=== PATIENT | male | born 1975 | race Caucasian/White ===

== ENCOUNTER 2016-06-12 20:23 | Emergency (ER) | payer SELFPAY ==
[~2016-06-12] VITALS: Ht 180.3 cm; Wt 68.8 kg
[2016-06-12 20:51] VITALS: TEMP 37; Ht 180.3 cm; Wt 68.8 kg
[2016-06-12] MEDS ORDERED: MoRPHine SULFATE 10 MG/ML CARP/VIAL IV STA (21:47)
[2016-06-12] MEDS ORDERED: DEXAMETHASONE SOD INJ 4 MG/ML VIAL IV STA (21:47)
[2016-06-12] MEDS ORDERED: AMPICILLIN/SULBACTAM SOD INJ 3,000 MG in SODIUM CHLORIDE 0.9% 100ML 100 ML IV ONE (22:00)
[2016-06-12 22:35] LABS: BASO % 0.2 %; BASO ABS # 0.03 K/uL (0-0.2); COMPLETE YES; EOS % 0.2 %; IG% 0.3 %; LYMPH % 12.3 %; MEAN CELL VOLUME 96.8 fL (80-100); MEAN CORPUSCULAR HEMOGLOBIN 32.8 pg (25-34); MEAN CORPUSCULAR HGB CONC 33.9 g/dl (32-36); MEAN PLATELET VOLUME 9.3 fL (7.4-10.4); PLATELET COUNT 321 K/uL (130-400); RED BLOOD COUNT 4.75 M/uL (4.7-6.1); WHITE BLOOD COUNT 14.62 K/uL (4.8-10.8)
[2016-06-12 23:01] LABS: BUN/CREATININE RATIO 12.3 (10-20); CREATININE 0.91 mg/dl (0.60-1.40); POTASSIUM 4.4 mmol/L (3.5-5.1)
[2016-06-12 23:03] LABS: CALCIUM 9.6 mg/dl (8.5-10.1)
[2016-06-12] MEDS ORDERED: [UNRECOGNIZED DRUG - OTHER] PO (23:12)
[2016-06-12] MEDS ORDERED: VNTHFA/IN INH (23:12)
[2016-06-13 00:19] VITALS: BP 127/69; PULSE 73; O2SAT 98
[2016-06-13] MEDS ORDERED: HYDR-5688 PO (00:42)
[2016-06-13] MEDS ORDERED: AMOX875T PO (00:42)
[2016-06-13] MEDS ORDERED: METH4PAK PO (00:42)
--- NOTE | 2016-06-13 00:44 | EMERGENCY ROOM VISIT NOTE ---
History First contact with patient: 21:36 Chief Complaint: ILLNESS Stated Complaint: HOT/COLD, LITTLE WEAK, HARD TO SWALLOW History of Present Illness The patient is a 41 year old male who presents to the Emergency Room with complaints of sore throat for the past 3 days. The patient states that he has had soreness in the left side of his throat and left ear for the past 3-4 days. He has had difficulty swallowing and states that he is currently unable to swallow saliva due to pain. He reports he has had body aches and hot and cold flashes. He has not taken his temperature. He rates his discomfort a 10/10. He denies any sick contacts. He has been taking an etxf-tsx-sliewxy decongestant without relief of his symptoms. He denies any shortness of breath , neck pain, headache, cough, abdominal pain, nausea or vomiting. Review of Systems A complete 10 point review of systems was reviewed with the patient with pertinent positives and negatives as per history of present illness. All else were negative. Social History Smoking Status: Current Every Day Smoker Current/Historical Medications Scheduled Amoxicillin & Pot Clavulanate (Augmentin 875-125 mg), 1 TAB PO BID Methylprednisolone (Medrol Dosepak), 0 PO DAILY [[place]], 1 KARLEE PO PRN Scheduled PRN Albuterol Hfa (Ventolin Hfa), 2 PUFFS INH Q6H PRN for SOB/Wheezing Hydrocodone/Acetaminophen 5MG/325MG ([place] 5MG/325MG), 1-2 TABLET PO Q4H PRN for Pain Physical Exam Vital Signs Date Time Temp Pulse Resp B/P Pulse Ox O2 Delivery O2 Flow Rate FiO2 06/13/16 00:19 73 16 127/69 98 Room Air 06/12/16 22:32 92 20 141/79 95 Room Air 06/12/16 20:51 37.0 106 19 126/78 97 Room Air Physical Exam VITALS: Vitals are noted on the nurse's note and reviewed by myself. Vital signs stable. GENERAL: This is a 41-year-old male, in no acute distress, nondiaphoretic, well- developed well-nourished. SKIN: The skin was without rashes. EARS: External auditory canals clear, tympanic membranes pearly brink without erythema or effusion bilaterally. EYES: Pupils equal round and reactive to light and accommodation. Conjunctivae without injection, sclerae without icterus. NOSE: Patent, turbinates without inflammation or discharge. MOUTH: Mucous membranes moist. There is mild fullness of the left tonsillar area without evidence of cullen abscess. There is no significant uvular deviation. The airway is patent. No exudate present. No trismus. NECK: Supple without nuchal rigidity. No lymphadenopathy. HEART: Regular rate and rhythm without murmurs gallops or rubs. LUNGS: Clear to auscultation bilaterally without wheezes, rales or rhonchi. ABDOMEN: Positive bowel sounds x 4. Soft, nontender to palpation. NEURO: Patient was alert and oriented to person place and time. Medical Decision & Procedures Laboratory Results 06/12/16 22:15 Red Blood Count 4.75, Mean Corpuscular Volume 96.8, Mean Corpuscular Hemoglobin 32.8, Mean Corpuscular Hemoglobin Concent 33.9, Mean Platelet Volume 9.3, Neutrophils (%) (Auto) 76.0, Lymphocytes (%) (Auto) 12.3, Monocytes (%) (Auto) 11.0, Eosinophils (%) (Auto) 0.2, Basophils (%) (Auto) 0.2, Neutrophils # (Auto ) 11.11, Lymphocytes # (Auto) 1.80, Monocytes # (Auto) 1.61, Eosinophils # (Auto ) 0.03, Basophils # (Auto) 0.03 06/12/16 22:15 Test 06/12/16 22:15 White Blood Count 14.62 K/uL (4.8-10.8) Red Blood Count 4.75 M/uL (4.7-6.1) Hemoglobin 15.6 g/dL (14.0-18.0) Hematocrit 46.0 % (42-52) Mean Corpuscular Volume 96.8 fL (80-100) Mean Corpuscular Hemoglobin 32.8 pg (25-34) Mean Corpuscular Hemoglobin Concent 33.9 g/dl (32-36) Platelet Count 321 K/uL (130-400) Mean Platelet Volume 9.3 fL (7.4-10.4) Neutrophils (%) (Auto) 76.0 % Lymphocytes (%) (Auto) 12.3 % Monocytes (%) (Auto) 11.0 % Eosinophils (%) (Auto) 0.2 % Basophils (%) (Auto) 0.2 % Neutrophils # (Auto) 11.11 K/uL (1.4-6.5) Lymphocytes # (Auto) 1.80 K/uL (1.2-3.4) Monocytes # (Auto) 1.61 K/uL (0.11-0.59) Eosinophils # (Auto) 0.03 K/uL (0-0.5) Basophils # (Auto) 0.03 K/uL (0-0.2) RDW Standard Deviation 48.3 fL (36.4-46.3) RDW Coefficient of Variation 13.5 % (11.5-14.5) Immature Granulocyte % (Auto) 0.3 % Immature Granulocyte # (Auto) 0.04 K/uL (0.00-0.02) Anion Gap 11.0 mmol/L (3-11) Est Creatinine Clear Calc Drug Dose 101.9 ml/min Estimated GFR () 119.2 Estimated GFR (Non- 102.9 BUN/Creatinine Ratio 12.3 (10-20) Calcium Level 9.6 mg/dl (8.5-10.1) Monoscreen NEG (NEG) Medications Administered Medications (Trade) Dose Ordered Sig/Shira Route Start Time Stop Time Status Last Admin Dose Admin Ampicillin Sodium/ Sulbactam Sodium/ Sodium Chloride (Unasyn Inj/Nss 100ml) 108 ml @ 200 mls/hr ONE ONCE IV 06/12/16 22:00 06/12/16 22:32 DC 06/12/16 22:24 200 MLS/HR Dexamethasone Sodium Phosphate (Decadron Inj) 10 mg NOW STAT IV 06/12/16 21:47 06/12/16 21:49 DC 06/12/16 22:24 10 MG Morphine Sulfate (MoRPHine SULFATE INJ) 6 mg NOW STAT IV 06/12/16 21:47 06/12/16 21:49 DC 06/12/16 22:25 6 MG ED Course The patient was evaluated as above. Labs were drawn and IV access was obtained. Patient was medicated with 3 g Unasyn, 10 mg Decadron, and 6 mg morphine for pain. Patient was reevaluated and felt much better. He was able to tolerate food and drink by mouth without difficulty. Discharge instructions were reviewed with the patient. The patient verbalized understanding of my assessment and treatment plan and was discharged home in good condition. Medical Decision Differential diagnosis includes pharyngitis, peritonsillar abscess, among others. The patient is a 41-year-old male who presents today complaining of a sore throat. Exam does show some fullness, but there is no trismus or evidence of significant abscess. The patient was treated with IV antibiotics, Decadron, and pain medication. He felt much better and was able to swallow. The patient will be discharged on Augmentin, Medrol Dosepak and [place] as needed for pain. He was instructed to follow-up here as needed for worsening symptoms or with ENT. The patient's case was reviewed with Dr. Kong, ED attending physician, who agreed with my assessment and treatment plan. Based on the patient's presentation and work up, I feel the patient is stable for outpatient treatment. The patient was educated to return to the emergency department for any worsening of their current condition or new/concerning symptoms. He will follow up with ENT or return here as needed. Impression Primary Impression: Pharyngitis Departure Information Dispostion Home / Self-Care Condition GOOD Prescriptions Methylprednisolone (MEDROL DOSEPAK) 4 Mg Josias 0 PO DAILY, #1 PKT Prov: Anika Sultana PA-C 06/13/16 Amoxicillin & Pot Clavulanate (Augmentin 875-125 mg) 1 Tab Tab 1 TAB PO BID for 10 Days, #20 TAB Prov: Anika Sultana PA-C 06/13/16 Hydrocodone/Acetaminophen 5MG/325MG ([place] 5MG/325MG) Tab 1-2 TABLET PO Q4H Y for Pain, #15 TAB For Initial Treatment Prov: Anika Sultana PA-C 06/13/16 Referrals No Doctor, Assigned (PCP) Wily Graves D.O. Patient Instructions My [facility] Additional Instructions You were prescribed Augmentin to be taken twice daily as prescribed. This is an antibiotic. All antibiotics have the potential to cause diarrhea. Stop this medication and contact a medical provider if you were to develop any significant adverse side effects including: wheezing, shortness of breath, passing out, vomiting, or a diffuse rash. Always take antibiotics as directed and COMPLETE the ENTIRE course regardless of the improvement of your symptoms. You have been prescribed [place] to be used for pain control. Take 1-2 tablets every 4-6 hours as needed for pain. This is a narcotic medication. You cannot drive or consume alcohol while on this medicine. This medicine should only be used for pain that cannot be controlled with [id number] pain medicines. For pain control, you can use the following pmlt-llh-tybvknw medicines (if >12 yo): - Regular strength (325mg/tab) Tylenol (acetaminophen) 2 tabs every 4-6 hours as needed. Do not exceed 12 tablets in a 24 hour period. Avoid taking more than 4 grams (4000 mg) of Tylenol per day. This includes any other sources of acetaminophen you may take on a regular basis. - Regular strength (200 mg/tab) Advil (ibuprofen) 1-2 tabs every 4-6 hours as needed. Do not exceed a dose of 3200 mg per day. Take the Medrol Dosepak as prescribed. Make sure to rest and drink plenty of fluids. You may follow up with ENT if your sore throat does not resolve. Return to the emergency department immediately if you have difficulty breathing , worsening difficulty swallowing, fevers or any other new/concerning symptoms. Problem Qualifiers Primary Impression: Pharyngitis
[2016-06-13] MEDS ORDERED: NORCO 5/325MG HOME PACK PO ONE (00:45)
== END 2016-06-13 00:50 | disposition home or self-care (01) ==
LOC: C.EDB 20:25 → C.EDA 06-13 00:50
DX: J02.9 Acute pharyngitis, unspecified (principal); F17.210 Nicotine dependence, cigarettes, uncomplicated

== ENCOUNTER → 2017-01-16 | Outpatient (CLI) | payer OTHER ==
[~2017-01-16] MED LIST: VNTHFA/IN INH; [UNRECOGNIZED DRUG - OTHER] PO
[2017-01-16 12:52] LABS: BLOOD UREA NITROGEN 14 mg/dl (7-18); CALCIUM 8.4 mg/dl (8.5-10.1); CARBON DIOXIDE 21 mmol/L (21-32); CHLORIDE 102 mmol/L (98-107); CREATININE 0.92 mg/dl (0.60-1.40); GLUCOSE 200 mg/dl (70-99); POTASSIUM 3.9 mmol/L (3.5-5.1); SODIUM 130 mmol/L (136-145)
== END | disposition home or self-care (01) ==
LOC: C.LABPBG 10:57
PROVIDERS: ATTEND Neuromusculoskeletal Medicine & OMM
DX: E87.1 Hypo-osmolality and hyponatremia (principal)

== ENCOUNTER → 2017-01-30 | Outpatient (CLI) | payer OTHER ==
[~2017-01-30] MED LIST changes: +OPTIRAY 320 IV PRN
--- NOTE | 2017-01-30 11:17 | DIAGNOSTIC IMAGING REPORT ---
PELVIS W/IV CONT ONLY (CT) HISTORY: Bilateral groin pain. HERNIA TECHNIQUE: Multiaxial CT images of the pelvis performed following the use of intravenous contrast only. COMPARISON STUDY: None. FINDINGS: The bladder is moderately distended. No bladder wall thickening. The visualized loops of bowel show no wall thickening or obstruction. No pelvic lymphadenopathy. No pelvic free fluid. The visualized osseous structures show no suspicious lytic or blastic lesions. No evidence for right inguinal hernia. There is a small hypodense focus near the proximal right inguinal canal suggestive of prior mesh repair. There is a small left-sided inguinal hernia containing fat and a short segment of the proximal sigmoid colon. IMPRESSION: 1. Small left inguinal hernia containing fat and a short segment of the proximal sigmoid colon. No evidence for bowel obstruction. 2. Suggestion of prior right inguinal herniorrhaphy. No evidence for right inguinal hernia. 3. Moderately distended bladder. Electronically signed by: Gregory Delgado M.D. 01/30/2017 11:15 AM Dictated Date/Time: 01/30/2017 11:11 AM
== END | disposition home or self-care (01) ==
LOC: C.CTS 10:56
PROVIDERS: ATTEND Surgery
DX: K40.90 Unilateral inguinal hernia, without obstruction or gangrene, not specified as recurrent (principal); N32.89 Other specified disorders of bladder

== ENCOUNTER → 2017-01-31 | Outpatient (CLI) | payer OTHER ==
[~2017-01-31] MED LIST changes: -OPTIRAY 320 IV PRN
[2017-01-31 17:40] LABS: BLOOD UREA NITROGEN 13 mg/dl (7-18); BUN/CREATININE RATIO 14.8 (10-20); CALCIUM 8.7 mg/dl (8.5-10.1); CARBON DIOXIDE 23 mmol/L (21-32); CHLORIDE 101 mmol/L (98-107); CREATININE 0.86 mg/dl (0.60-1.40); GLUCOSE 98 mg/dl (70-99); POTASSIUM 3.9 mmol/L (3.5-5.1); SODIUM 129 mmol/L (136-145)
[2017-01-31 17:51] LABS: URINE APPEARANCE CLEAR (CLEAR); URINE BILIRUBIN NEG (NEG); URINE COLOR YELLOW; URINE NITRITE NEG (NEG); UROBILINOGEN NEG (NEG)
[2017-01-31 18:08] LABS: MANUAL MICROSCOPIC REQUIRED? NO; REVIEW REQ? YES
[2017-01-31 18:39] LABS: URINE EPITHELIAL CELL AUTO 0-5 /lpf (0-5)
== END | disposition home or self-care (01) ==
LOC: C.LABPBG 10:56
PROVIDERS: ATTEND Neuromusculoskeletal Medicine & OMM
DX: E87.1 Hypo-osmolality and hyponatremia (principal)

== ENCOUNTER 2017-02-23 14:48 | Emergency (ER) | payer OTHER ==
[~2017-02-23] VITALS: Ht 177.8 cm; Wt 82.4 kg
[~2017-02-23 14:48] MED LIST changes: -VNTHFA/IN INH
[2017-02-23 14:55] VITALS: TEMP 36.8
[2017-02-23] MEDS ORDERED: METHYLPREDNISOLONE 125 MG VIAL IV STA (14:57)
[2017-02-23] MEDS ORDERED: ALBUT/IPRATROP 3MG/0.5MG NEB 3 ML VIAL INH STA (14:57)
[2017-02-23] MEDS ORDERED: SODIUM CHLORIDE 0.9% 1000ML 1,000 ML IV STA (14:57)
[2017-02-23 14:59] VITALS: O2SAT 95; Ht 177.8 cm; Wt 82.4 kg
--- NOTE | 2017-02-23 15:13 | EMERGENCY ROOM VISIT NOTE ---
History Report prepared by Bess: Paula Phoenix Under the Supervision of: Dr. Dick Abreu D.O. First contact with patient: 14:51 Stated Complaint: SHORTNESS OF BREATH/COUGH History of Present Illness The patient is a 41 year old male who presents to the Emergency Room with complaints of a persistent cough that began a few days ago. The patient notes he has rhinorrhea and a history of asthma. He states he has been sweating excessively for the past 3-4 days. The patient notes right leg swelling, a hernia, and history of smoking about half a pack a day. Source of History: patient Onset: few days ago Position: other (global) Quality: other (cough) Timing: other (persistent) Associated Symptoms: + diaphoresis Review of Systems See HPI for pertinent positives & negatives. A total of 10 systems reviewed and were otherwise negative. Past Medical & Surgical Medical Problems: (1) Hernia Family History Patient reports no known family medical history. Social History Smoking Status: Current Every Day Smoker Smokeless Tobacco Use: No Alcohol Use: none Drug Use: none Marital Status: Housing Status: lives with family Occupation Status: employed Current/Historical Medications Scheduled Azithromycin (Zithromax), 500 MG PO DAILY Bupropion Hcl (Bupropion Hcl Er), 150 MG PO BID Prednisone (Prednisone Tab), 40 MG PO DAILY Sertraline Hcl (Zoloft), 50 MG PO DAILY Sodium Chloride (Sodium Chloride), 1 GM PO BID Scheduled PRN Albuterol Hfa (Ventolin Hfa), 2 PUFFS INH Q6H PRN for SOB/Wheezing Allergies Coded Allergies: No Known Allergies (Unverified , 02/23/17) Physical Exam Vital Signs Date Time Temp Pulse Resp B/P (MAP) Pulse Ox O2 Delivery O2 Flow Rate FiO2 02/23/17 17:26 85 20 148/85 94 02/23/17 16:10 93 20 133/81 93 02/23/17 14:59 95 Room Air 02/23/17 14:59 95 Room Air 02/23/17 14:56 101 02/23/17 14:55 36.8 99 15 148/94 95 Room Air Physical Exam GENERAL: Patient is awake, alert, and in no acute distress. Patient is resting comfortably and very anxious appearing EYES: The conjunctivae are clear. The pupils are round and reactive. EARS, NOSE, MOUTH AND THROAT: The nose is without any evidence of any deformity. Mucous membranes are moist tongue is midline NECK: The neck is nontender and supple. RESPIRATORY: Lung sounds diminished in left lung field, rales noted in right side. CARDIOVASCULAR: Regular rate and rhythm noted there no murmurs rubs or gallops normal S1 normal S2 GASTROINTESTINAL: The abdomen is soft. Bowel sounds are present in all quadrants. Abdomen is nontender MUSCULOSKELETAL/EXTREMITIES: There is no evidence of gross deformity full range of motion is noted in the hips and shoulders SKIN: Trace pedal edema noted, right greater than left. NEUROLOGIC: Patient is awake alert and oriented x3 strength is symmetric patellar reflexes are 2+ bilaterally Medical Decision & Procedures ER Provider Diagnostic Interpretation: Radiology results as stated below per my review and radiologist interpretation: CHEST ONE VIEW PORTABLE CLINICAL HISTORY: EVALUATE RESPIRATORY DISTRESS.DYSPNEA dyspnea COMPARISON STUDY: 02/23/2017 FINDINGS: The bones soft tissues and hemidiaphragms are normal. The cardiomediastinal silhouette is normal. The lungs are clear. The pulmonary vasculature is normal. IMPRESSION: Negative chest. The above report was generated using voice recognition software. It may contain grammatical, syntax or spelling errors. Electronically signed by: Manny Soler M.D. 02/23/2017 3:24 PM Dictated Date/Time: 02/23/2017 3:24 PM Laboratory Results 02/23/17 16:03 Red Blood Count 3.99, Mean Corpuscular Volume 95.2, Mean Corpuscular Hemoglobin 33.1, Mean Corpuscular Hemoglobin Concent 34.7, Mean Platelet Volume 8.8, Neutrophils (%) (Auto) 72.2, Lymphocytes (%) (Auto) 20.6, Monocytes (%) (Auto) 5.7, Eosinophils (%) (Auto) 0.8, Basophils (%) (Auto) 0.2, Neutrophils # (Auto) 7.37, Lymphocytes # (Auto) 2.10, Monocytes # (Auto) 0.58, Eosinophils # (Auto) 0.08, Basophils # (Auto) 0.02 02/23/17 16:03 Test 02/23/17 15:50 02/23/17 15:55 02/23/17 16:03 Urine Color YELLOW Urine Appearance CLEAR (CLEAR) Urine pH 5.0 (4.5-7.5) Urine Specific [place] 1.009 (1.000-1.030) Urine Protein NEG (NEG) Urine Glucose (UA) NEG (NEG) Urine Ketones NEG (NEG) Urine Occult Blood NEG (NEG) Urine Nitrite NEG (NEG) Urine Bilirubin NEG (NEG) Urine Urobilinogen NEG (NEG) Urine Leukocyte Esterase NEG (NEG) Influenza Type A Antigen Neg for Influ A (NEG) Influenza Type B Antigen Neg for Influ B (NEG) White Blood Count 10.20 K/uL (4.8-10.8) Red Blood Count 3.99 M/uL (4.7-6.1) Hemoglobin 13.2 g/dL (14.0-18.0) Hematocrit 38.0 % (42-52) Mean Corpuscular Volume 95.2 fL (80-100) Mean Corpuscular Hemoglobin 33.1 pg (25-34) Mean Corpuscular Hemoglobin Concent 34.7 g/dl (32-36) Platelet Count 278 K/uL (130-400) Mean Platelet Volume 8.8 fL (7.4-10.4) Neutrophils (%) (Auto) 72.2 % Lymphocytes (%) (Auto) 20.6 % Monocytes (%) (Auto) 5.7 % Eosinophils (%) (Auto) 0.8 % Basophils (%) (Auto) 0.2 % Neutrophils # (Auto) 7.37 K/uL (1.4-6.5) Lymphocytes # (Auto) 2.10 K/uL (1.2-3.4) Monocytes # (Auto) 0.58 K/uL (0.11-0.59) Eosinophils # (Auto) 0.08 K/uL (0-0.5) Basophils # (Auto) 0.02 K/uL (0-0.2) RDW Standard Deviation 45.8 fL (36.4-46.3) RDW Coefficient of Variation 13.1 % (11.5-14.5) Immature Granulocyte % (Auto) 0.5 % Immature Granulocyte # (Auto) 0.05 K/uL (0.00-0.02) Prothrombin Time 11.2 SECONDS (9.0-12.0) Prothromb Time International Ratio 1.1 (0.9-1.1) Activated Partial Thromboplast Time 25.9 SECONDS (21.0-31.0) Partial Thromboplastin Ratio 1.0 Anion Gap 10.0 mmol/L (3-11) Est Creatinine Clear Calc Drug Dose 136.6 ml/min Estimated GFR () 132.4 Estimated GFR (Non- 114.3 BUN/Creatinine Ratio 11.1 (10-20) Calcium Level 7.9 mg/dl (8.5-10.1) Total Bilirubin 0.2 mg/dl (0.2-1) Aspartate Amino Transf (AST/SGOT) 28 U/L (15-37) Alanine Aminotransferase (ALT/SGPT) 32 U/L (12-78) Alkaline Phosphatase 106 U/L (45-117) Troponin I < 0.015 ng/ml (0-0.045) Total Protein 6.8 gm/dl (6.4-8.2) Albumin 3.1 gm/dl (3.4-5.0) Globulin 3.7 gm/dl (2.5-4.0) Albumin/Globulin Ratio 0.8 (0.9-2) Laboratory results per my review. Medications Administered Medications (Trade) Dose Ordered Sig/Shira Route Start Time Stop Time Status Last Admin Dose Admin Sodium Chloride 1,000 ml @ 999 mls/hr Q1H1M STAT IV 02/23/17 14:57 02/23/17 15:57 DC 02/23/17 15:14 999 MLS/HR Albuterol/ Ipratropium (Duoneb) 3 ml NOW STAT INH 02/23/17 14:57 02/23/17 14:58 DC 02/23/17 15:11 3 ML Methylprednisolone Sodium Succinate (Solu-Medrol IV) 125 mg NOW STAT IV 02/23/17 14:57 02/23/17 14:58 DC 02/23/17 15:11 125 MG Azithromycin (Zithromax Tab) 500 mg NOW STAT PO 02/23/17 16:01 02/23/17 16:02 DC 02/23/17 16:11 500 MG ECG Indication: SOB/dyspnea Rate (beats per minute): 91 Rhythm: normal sinus Findings: no ectopy, other (No acute ST segments) Comparison ECG Date: no prior available ED Course 1456: The patient was evaluated in room C8. A complete history and physical examination were performed. 1457: Ordered Solu-Medrol IV 125mg IV, Duoneb 3ml INH, and Sodium Chloride 1000ml @ mls/hr IV. 1601: Ordered Zithromax Tab 500mg PO. 1642: Upon reevaluation, the patient is resting comfortably. I discussed the results and treatment plan with him. He verbalized agreement of the treatment plan. The patient was discharged home. Medical Decision Prior records/ancillary studies reviewed. Triage Nursing notes reviewed. The patient's history was concerning for respiratory difficulties. Differential diagnosis: Etiologies such as infections, reactive airway disease, pneumonia, pneumothorax , COPD, CHF, cardiac ischemia, pulmonary embolism, musculoskeletal, gastrointestinal, as well as others were entertained. The patient is a 41-year-old male who presented to the emergency department for evaluation of shortness of breath and cough. The patient's history and physical exam appeared to be consistent with more with bronchitis. The patient did not appear to have any acute cardiac abnormalities on EKG. Chest x-ray did not show signs of pneumonia. The patient was treated with bronchodilator therapy steroids and an antibiotic. He was reevaluated multiple times. On subsequent reevaluation he was feeling much better. I discussed the patient's laboratory and radiographic studies with him. He was encouraged to rest and avoid any strenuous activity. I also encouraged him to follow-up with his primary care physician as soon as possible for further evaluation. He was also encouraged to return to the emergency Department immediately if symptoms change worsen or the need arises. Medication Reconcilliation Current Medication List: was personally reviewed by me Blood Pressure Screening Patient's blood pressure: Normal blood pressure Impression Primary Impression: Acute bronchitis Scribe Attestation The scribe's documentation has been prepared under my direction and personally reviewed by me in its entirety. I confirm that the note above accurately reflects all work, treatment, procedures, and medical decision making performed by me. Departure Information Dispostion Home / Self-Care Prescriptions Azithromycin (Zithromax) 500 Mg Tab 500 MG PO DAILY, #4 TAB Prov: Dick Abreu, DO 02/23/17 Prednisone (Prednisone Tab) 20 Mg Tab 40 MG PO DAILY, #10 TAB Prov: Dick Abreu, DO 02/23/17 Referrals Hector Benson D.O. (PCP) Forms HOME CARE DOCUMENTATION FORM, IMPORTANT VISIT INFORMATION Additional Instructions Continue all medications as prescribed. Drink plenty clear liquids. Continue using Motrin and Tylenol as directed for fever and body aches. Follow-up with your family doctor soon as possible. Start taking the Zithromax as well as prednisone tomorrow. His urine given the first dose in the emergency department today. Return to emergency department immediately if symptoms change worsen or the need arises. Problem Qualifiers Primary Impression: Acute bronchitis Bronchitis organism: unspecified organism Qualified Codes: J20.9 - Acute bronchitis, unspecified
--- NOTE | 2017-02-23 15:25 | DIAGNOSTIC IMAGING REPORT ---
CHEST ONE VIEW PORTABLE CLINICAL HISTORY: EVALUATE RESPIRATORY DISTRESS.DYSPNEA dyspnea COMPARISON STUDY: 02/23/2017 FINDINGS: The bones soft tissues and hemidiaphragms are normal. The cardiomediastinal silhouette is normal. The lungs are clear. The pulmonary vasculature is normal. IMPRESSION: Negative chest. The above report was generated using voice recognition software. It may contain grammatical, syntax or spelling errors. Electronically signed by: Manny Soler M.D. 02/23/2017 3:24 PM Dictated Date/Time: 02/23/2017 3:24 PM
[2017-02-23] MEDS ORDERED: BUPR-267 PO (15:41)
[2017-02-23] MEDS ORDERED: SODI1TAB PO (15:41)
[2017-02-23] MEDS ORDERED: SERT1TAB71 PO (15:41)
[2017-02-23] MEDS ORDERED: AZITHROMYCIN 250 MG TAB PO STA (16:01)
[2017-02-23 16:16] LABS: BASO % 0.2 %; BASO ABS # 0.02 K/uL (0-0.2); EOS % 0.8 %; EOS ABS # 0.08 K/uL (0-0.5); HEMOGLOBIN 13.2 g/dL (14.0-18.0); IG# 0.05 K/uL (0.00-0.02); LYMPH % 20.6 %; MEAN CELL VOLUME 95.2 fL (80-100); MEAN CORPUSCULAR HEMOGLOBIN 33.1 pg (25-34); MEAN CORPUSCULAR HGB CONC 34.7 g/dl (32-36); MEAN PLATELET VOLUME 8.8 fL (7.4-10.4); MONO % 5.7 %; MONO ABS # 0.58 K/uL (0.11-0.59); NEUT % 72.2 %; NEUT ABS # 7.37 K/uL (1.4-6.5); PLATELET COUNT 278 K/uL (130-400); RED CELL DISTRIBUTION WIDTH CV 13.1 % (11.5-14.5); RED CELL DISTRIBUTION WIDTH SD 45.8 fL (36.4-46.3)
[2017-02-23 16:22] LABS: INFLUENZA B ANTIGEN Neg for Influ B (NEG)
[2017-02-23 16:26] LABS: INR 1.1 (0.9-1.1); PTT PATIENT 25.9 SECONDS (21.0-31.0)
[2017-02-23 16:37] LABS: ALBUMIN 3.1 gm/dl (3.4-5.0); ALT/SGPT 32 U/L (12-78); AST/SGOT 28 U/L (15-37); BLOOD UREA NITROGEN 8 mg/dl (7-18); CALCIUM 7.9 mg/dl (8.5-10.1); CARBON DIOXIDE 20 mmol/L (21-32); CREATININE 0.72 mg/dl (0.60-1.40); GLUCOSE 82 mg/dl (70-99); POTASSIUM 3.7 mmol/L (3.5-5.1); SODIUM 138 mmol/L (136-145)
[2017-02-23 16:41] LABS: ALKALINE PHOSPHATASE 106 U/L (45-117); TOTAL PROTEIN 6.8 gm/dl (6.4-8.2)
[2017-02-23] MEDS ORDERED: AZIT500T26 PO (16:49)
[2017-02-23] MEDS ORDERED: PRED20TA2 PO (16:49)
[2017-02-23 17:26] VITALS: BP 148/85; PULSE 85; O2SAT 94
[2017-02-23] MEDS ORDERED: VNTHFA/IN INH (23:12)
[2017-02-26] MEDS ORDERED: AZIT500T26 PO (10:06)
[2017-02-26] MEDS ORDERED: PRED20TA PO (10:06)
== END 2017-02-23 17:27 | disposition home or self-care (01) ==
LOC: EDBD 14:48 → C.EDC 14:49
DX: J20.9 Acute bronchitis, unspecified (principal); F17.200 Nicotine dependence, unspecified, uncomplicated; Z79.899 Other long term (current) drug therapy

== ENCOUNTER → 2017-03-06 | Day surgery (SDC) | payer OTHER ==
[2017-02-26 10:06] VITALS: Ht 179.1 cm; Wt 70.5 kg
[~2017-03-06] VITALS: Ht 179.1 cm; Wt 70.5 kg
[~2017-03-06] MED LIST changes: +ATROPINE SULFATE 0.1 MG/ML 5ML SYR IV PRN; +AZIT500T26 PO; +BUPIVACAINE/EPINEPHRINE 0.5% MPF 1:200,000 30 ML VIAL ONE; +BUPR-267 PO; +CEFAZOLIN 2000MG IV PUSH 10 ML IV SCH; +DEXAMETHASONE SOD INJ 4 MG/ML VIAL ONE; +EpHEDrine SULFATE INJ 50 MG/ML AMP IV PRN; +FENTANYL CITRATE INJ 50 MCG/1 ML 2 ML VIAL IV PRN; +FENTANYL CITRATE INJ 50 MCG/1 ML 2 ML VIAL ONE; +HYDR-5688 PO; +HYDROCODONE/ACETAMIN 5/325MG TAB PO PRN; +KETOROLAC TROMETHAMINE 30 MG/ML VIAL ONE; +LACTATED RINGER'S 1000ML 1,000 ML IV SCH; +LIDOCAINE HCL 2% 2 ML VIAL (20MG/ML) ONE; +MEPERIDINE HCL 25 MG/ML CARP IV PRN; +MEPERIDINE HCL 25 MG/ML CARP ONE; +MIDAZOLAM HCL 1 MG/ML 2ML VIAL ONE; +ONDANSETRON INJ 2 MG/ML 2 ML VIAL IV PRN; +ONDANSETRON INJ 2 MG/ML 2 ML VIAL ONE; +PRED20TA PO; +PROPOFOL IV EMULSION 10 MG/ML 20 ML VIAL IV ONE; +SERT1TAB71 PO; +SODI1TAB PO; +SODIUM CHLORIDE 0.9% 1000ML 1,000 ML IV SCH; +SULF800T23 PO; +TRIAMCINOLONE ACET 40 MG/ML VIAL ONE; +VNTHFA/IN INH; -[UNRECOGNIZED DRUG - OTHER] PO
--- NOTE | 2017-03-06 08:48 | History & Physical Bridge Note ---
H&P Re-Evaluation Bridge Note: I have examined the patient, reviewed the History & Physical and in the interval since the performance of the History & Physical I have noted the following changes of clinical significance: No changes noted
--- NOTE | 2017-03-06 10:25 | [facility] Post Operative Brief Note ---
Immediate Operative Summary Operative Date Mar 06, 2017. Pre-Operative Diagnosis Left inguinal hernia, Right pubitis Post-Operative Diagnosis same as preop Procedure(s) Performed Left Open Inguinal Hernia Repair With Mesh, Right Pubis injection with steroid Surgeon Dr. Nelson [employer] Surgeon(s) COLT [place] Estimated Blood Loss 5ml Findings Consistent with Post-Op Diagnosis Specimens none Drains None Anesthesia Type General Complication(s) none Disposition Disposition: Recovery Room / PACU
--- NOTE | 2017-03-06 10:31 | [facility] Operative Report ---
Operative Report Operative Date Mar 06, 2017. Pre-Operative Diagnosis Left inguinal hernia, Right pubitis Post-Operative Diagnosis same as preop Procedure(s) Performed Left Open Inguinal Hernia Repair With Mesh, Right Pubis injection with steroid Surgeon Dr. Nelson Grain Mixer Surgeon(s) COLT Orantes Estimated Blood Loss 5ml Findings indirect LIH Specimens none Anesthesia gen Complication(s) None Disposition Recovery Room / PACU Description of Procedure After informed consent was obtained the patient was taken the operating room and placed in supine position. After successful intubation the lower abdomen was shaved and sterilely prepped and draped in usual fashion. Left inguinal incision was made with a 15 blade scalpel and carried down through the soft tissue using electrocautery. The external oblique aponeurosis was skeletonized. A fresh blade was used to make an incision and a Metzenbaum scissor was used to extend this incision distally through the external ring as well as for several centimeters proximally. Once in the inguinal canal we used primarily blunt dissection to delineate the cord from the other structures. It was gently teased off the pubic bone using blunt finger and a Michelle drain was placed around it. There was no evidence of a direct hernia. We began to examine the cord and cord structures and readily found a moderate sized indirect hernia sac. We used traction countertraction and small amounts electrocautery to dissect the sac back to its neck. I was then able to easily dunk this back into the abdominal cavity. Once this was done we then thoroughly irrigated the wound. A polypropylene keyhole mesh was used as an onlay. It was fixated distally to Grupo's ligament laterally along the shelving portion of Poupart ligament and medially along the midline musculature. 0- Ethibond was used for the suturing. The "arms" of the mesh were wrapped around behind the cord and cord structures and secured underlying muscle. The ilioinguinal nerve was identified prior to placing the mesh and I sharply lyse this with a Metzenbaum scissor to help prevent future cord entrapment. At the end of the procedure the mesh laid tension free and nice and flat. It did not appear to impinge on the cord and cord structures. We thoroughly irrigated the wound. Use Marcaine to inject around the edges of the mesh for postoperative analgesia. We then closed the external oblique aponeurosis with 2-0 Vicryl in a running fashion. Soft tissue was irrigated and closed using 3-0 Vicryl and 4-0 Monocryl for the skin. Some additional Marcaine was injected around the incision and glue was used as a dressing. Because of his chronic pubic pain and no evidence of a hernia we used 40 mg of Kenalog reconstituted with 9 mL of Marcaine we injected the pubic bone as well as his old incision line. My physician's medical research assistant was present throughout the entire case. She helped prepped the patient. She helped with retraction throughout the case. She also helped with wound closure both deep and superficial as well as dressing placement I attest to the content of the Intraoperative Record and any orders documented therein. Any exceptions are noted below.
--- NOTE | 2017-03-06 10:47 | Discharge Instructions-SurgCtr ---
Discharge Instructions Date of Service Mar 06, 2017. Visit Reason for Visit: Left Inguinal Hernia Discharge Discharge Diagnosis / Problem: Left Inguinal Hernia Discharge Goals Goal(s): Decrease discomfort, Improve function Activity Recommendations Activity Limitations: as noted below Lifting Limitations: no more than 10 pounds Exercise/Sports Limitations: until after follow-up appointment May Resume Sexual Activity: after follow-up appointment Shower/Bathe: tomorrow Driving or Machine Use: resume 1 day after discharge Anesthesia . Post Anesthesia Instructions: If you have had General Anesthesia or IV Sedation: * Do not drive today. * Resume driving when surgeon permits. * Do not make important decisions or sign legal documents today. * Call surgeon for: 1. Temperature elevations greater than 101 degrees F. 2. Uncontrollable pain. 3. Excessive bleeding. 4. Persistent nausea and vomiting. 5. Medication intolerance (nausea, vomiting or rash). * For nausea and vomiting use only clear liquids such as: tea, soda, bouillon until nausea subsides, then gradually increase diet as tolerated. * If you have any concerns or questions, call your surgeon's office. If physician is unavailable and it is an emergency, call 911 or go to the nearest emergency room. . Instructions / Follow-Up Instructions / Follow-Up Please follow-up with Dr. Nelsno in the [facility] Surgery [facility] in 1-2 weeks. Please call the office at [phone] to make an appointment if you do not have one already. Please call the office with any questions or concerns. Diet Recommendations Home Diet: no limitations Procedures Procedures Performed: Left Open Inguinal Hernia Repair With Mesh, Right Pubis injection with steroid Pending Studies Studies pending at discharge: no Medical Emergencies . Who to Call and When: Medical Emergencies: If at any time you feel your situation is an emergency, please call 911 immediately. . Non-Emergent Contact Non-Emergency issues call your: Primary Care Provider, Surgeon Call Non-Emergent contact if: temperature is above 101.5, your pain is not controlled, wound has increased drainage, wound has increased redness . . "Provider Documentation" section prepared by Sara Gould. . [place] Drug Monitoring Program Search Results: patient reviewed within database, no issues identified
[2017-03-06 12:45] VITALS: BP 162/87; PULSE 96; O2SAT 97
--- NOTE | 2017-03-06 12:57 | Anesthesia Progress Nt - [facility] ---
Anesthesia Post Op Note Date & Time Mar 06, 2017 at 12:57 Vital Signs Pain Intensity: 7 Vital Signs Past 12 Hours Date Time Temp Pulse Resp B/P (MAP) Pulse Ox O2 Delivery O2 Flow Rate FiO2 03/06/17 12:45 96 16 162/87 (112) 97 Room Air 03/06/17 11:57 36.7 96 16 157/98 (117) 96 Room Air 03/06/17 11:46 95 18 98 03/06/17 11:46 95 18 03/06/17 11:42 159/98 03/06/17 11:41 100 14 03/06/17 11:41 99 14 171/105 97 03/06/17 11:40 103 17 03/06/17 11:40 105 17 97 03/06/17 11:36 158/100 03/06/17 11:35 95 23 03/06/17 11:35 94 23 95 03/06/17 11:31 156/98 03/06/17 11:30 94 20 94 03/06/17 11:30 94 20 03/06/17 11:29 92 22 94 03/06/17 11:29 92 22 03/06/17 11:27 37.4 92 20 152/96 94 Room Air 03/06/17 11:26 152/96 03/06/17 11:24 92 20 95 03/06/17 11:24 92 20 03/06/17 11:21 155/98 03/06/17 11:19 94 17 98 03/06/17 11:19 93 17 03/06/17 11:18 95 18 97 03/06/17 11:18 96 18 03/06/17 11:16 157/95 03/06/17 11:13 91 19 100 03/06/17 11:13 90 19 03/06/17 11:11 155/95 03/06/17 11:08 91 22 98 03/06/17 11:08 91 22 03/06/17 11:06 158/93 03/06/17 11:03 91 21 99 03/06/17 11:03 91 21 03/06/17 11:02 91 21 99 03/06/17 11:02 91 21 03/06/17 11:01 156/95 03/06/17 10:57 92 26 98 03/06/17 10:57 92 26 03/06/17 10:56 156/91 03/06/17 10:52 93 23 98 03/06/17 10:52 93 23 03/06/17 10:51 155/89 03/06/17 10:47 99 26 03/06/17 10:47 99 26 98 03/06/17 10:46 162/94 03/06/17 10:43 154/93 03/06/17 10:42 36.8 99 20 154/93 98 Diffusion Mask 6 03/06/17 08:10 36.5 89 16 157/107 (124) 98 Room Air Notes Mental Status: alert / awake / arousable, participated in evaluation Pt Amnestic to Procedure: Yes Nausea / Vomiting: adequately controlled Pain: adequately controlled Airway Patency, RR, SpO2: stable & adequate BP & HR: stable & adequate Hydration State: stable & adequate Anesthetic Complications: no major complications apparent
== END | disposition home or self-care (01) ==
LOC: X.SURG 07:49
PROVIDERS: ATTEND Surgery
DX: K40.90 Unilateral inguinal hernia, without obstruction or gangrene, not specified as recurrent (principal); M86.9 Osteomyelitis, unspecified; F41.9 Anxiety disorder, unspecified; J45.909 Unspecified asthma, uncomplicated; F17.200 Nicotine dependence, unspecified, uncomplicated; K44.9 Diaphragmatic hernia without obstruction or gangrene; Z92.241 Personal history of systemic steroid therapy

== ENCOUNTER 2018-02-27 18:14 | Inpatient (IN) ==
[2018-02-27] MEDS ORDERED: SODIUM CHLORIDE 0.9% 1000ML 2,000 ML IV SCH (18:30)
[2018-02-27 18:53] LABS: Basophils # (auto) 0.02 K/uL (0-0.2); Basophils % (auto) 0.3 %; Eosinophils # (auto) 0.15 K/uL (0-0.5); Eosinophils % (auto) 1.9 %; Hematocrit (blood only) 38.3 % (42-52); Hemoglobin 13.1 g/dL (14.0-18.0); Immature Granulocytes # (auto) 0.02 K/uL (0.00-0.02); Immature Granulocytes % (auto) 0.3 %; Lymphocytes # (auto) 2.69 K/uL (1.2-3.4); Lymphocytes % (auto) 34.4 %; Mean Corpuscular Hgb Conc 34.2 g/dL (32-36); Mean Corpuscular Volume 96.2 fL (80-100); Mean Platelet Volume 9.2 fL (7.4-10.4); Monocytes # (auto) 0.54 K/uL (0.11-0.59); Monocytes % (auto) 6.9 %; Neutrophils # (auto) 4.41 K/uL (1.4-6.5); Neutrophils % (auto) 56.2 %; Platelet Count 281 K/uL (130-400); RDW Coefficient of Variation 13.4 % (11.5-14.5); RDW Standard Deviation 47.8 fL (36.4-46.3); Red Blood Count 3.98 M/uL (4.7-6.1); White Blood Count 7.83 K/uL (4.8-10.8)
[2018-02-27 19:20] LABS: Albumin Level 3.3 gm/dl (3.4-5.0); BUN Creatinine Ratio 7.6 (10-20); Calcium 7.9 mg/dl (8.5-10.1); Creatinine Clr Calc Pharmacy 112.8 ml/min; Est GFR (African American) 120.5; Potassium 3.7 mmol/L (3.5-5.1)
[2018-02-27 19:22] LABS: Acetaminophen < 2 ug/ml (10-30)
[2018-02-27 19:23] LABS: Albumin Globulin Ratio 0.9 (0.9-2); Bilirubin,Total 0.1 mg/dl (0.2-1); Globulin 3.8 gm/dl (2.5-4.0); Salicylate 4.4 mg/dl (2.8-20); Total Protein 7.1 gm/dl (6.4-8.2)
[2018-02-27 19:32] LABS: Appearance Urine Clear (Clear); Bilirubin Urine Negative (Negative); Color Urine Yellow; Glucose Urine UA Negative (Negative); Ketones Urine Negative (Negative); Leukocyte Esterase Urine Negative (Negative); Nitrite Urine Negative (Negative); Protein Urine Negative (Negative); Specific Gravity Urine 1.005 (1.000-1.030); Urobilinogen Urine Negative (Negative)
[2018-02-27 19:49] LABS: RBC Morphology Unremarkable
[2018-02-27 19:55] LABS: Amphetamines+Metham, Urine Neg (Neg); Barbiturates, Urine Neg (Neg); Benzodiazepine, Urine Pos (Neg); Cocaine, Urine Neg (Neg); MDMA (Ecstacy), Urine Pos (Neg); Methadone, Urine Neg (Neg); Opiate, Urine Neg (Neg); Phencyclidine, Urine Neg (Neg)
[2018-02-27] MEDS ORDERED: D5W AND NSS 1,000 ML IV STA (20:07)
[2018-02-27] MEDS ORDERED: MULTI-VITAMIN INFUSION 10 ML, THIAMINE HCL 100 MG, FOLIC ACID 1 MG in SODIUM CHLORIDE 0... IV SCH (20:15)
[2018-02-27 20:40] LABS: Base Excess VBG -5.9 mEq/L; Oxygen Saturation VBG 89.9 %; pH VBG 7.34 (7.36-7.41)
--- NOTE | 2018-02-27 21:19 | History & Physical Report ---
Date of Service February 27, 2018 Assessment & Plan (1) Suicidal overdose: Patient with intentional overdose, suicide attempt. History of depression , prior suicide attempt in the past, increased stressors to include court hearing and arrest warrent as well as family and work stress. Patient presently not suicidal. States he will not attempt to harm himself while in the hospital. Per records he took Buspar, Claritin and Paxil (patient is not on Paxil or Buspar) and drank Etoh (level 193). He is awake and alert and responsive, mildly somnolent. Hemodynamically stable. EKG with sinus tachycardia with mild increase in QT interval to 475. * Admit to medical floor with telemetry monitoring * Seizure precautions * Aspiration precautions * 1:1 sitter * Will hold Sertraline, Loratadine and Bupropion for now due to overdose * Repeat EKG in AM to assess QT interval * Psychiatry consultation - appreciate assistance with this case * Present on Admission?: Yes (2) Seizures: Patient denies seizure tonight. States that he was shaking a little but not a true seizure * Seizure precautions * Monitor * AWSS - Ativan PRN * Patient most likely should not be on Bupropion given history of seizures, Psychiatry please comment * Present on Admission?: Yes (3) Hypertension: Blood pressure stable at present 125/74. * Continue Lisinopril daily * Present on Admission?: Yes (4) Alcohol abuse: Patient with history of heavy drinking. Was recommended to seek outpatient treatment at [facility], however, patient did not follow through. Does not consider himself an alcoholic * AWSS - Ativan PRN * Banana bag given in ER - continue IVF LR at 100mL/hr x 1 liter * Thiamine 100mg po daily * Seizure precautions * (5) Depression: Patient on Sertraline. He reports compliance with his medications. Does not follow routinely with a PCP or Psychiatry * Hold Sertraline in setting of OD * Monitor * Psychiatry consultation - appreciate assistance * F/E/N - LR at 100mL/hr x 1 liter, monitor electrolytes and replete as needed. Check Mg and PO4 x 1. Regular diet as tolerated with aspiration precautions. Nicotine patch 21mcg daily. Thiamine supplement as above Ppx - Lovenox for DVT prophylaxis Code - Full per discussion with patient Dispo - Admit to medical floor with tele. Anticipate short medical stay with subsequent discharge to Psychiatry. History of Present Illness Chief Complaint: Intentional overdose Primary Care Provider: NO PCP Patient is a 42yo male with history of depression, prior suicide attempts with pill overdose/EtOH, seizure disorder and hypertension. Patient presents today after taking an overdose of pills at home - reported to the ER attending that he took 3 - 4 Bupropion, 3 - 4 Claritin and 3 - 4 Paxil. Was unable to confirm this during my encounter. States that he drank 7-8 beers. Denies taking other pills or substances. Patient states that the intention of his actions was to end his life. He reports being under a lot of stress presently - He is due in court tomorrow for a harassment charge. He also reports that there is an outstanding arrest warrant for overdue child support. He denies pain at this time, specifically no CP/palpitations/SOB. No abdominal pain. No nausea/ vomiting/diarrhea or constipation. He denies feeling depressed at the moment. Denies SI/HI. He was verbally contracted for safety while inpatient. No additional complaints at this time. He was admitted in November 2017 with similar presentation, intentional OD of pills and EtOH. He was evaluated by Psychiatry at that time. Discharged home with plans to obtain outpatient treatment for EtOH abuse at [facility]. Patient states that he did not go to [facility]. He does not identify himself as an alcoholic. He states that he drinks frequently but not daily. No history of withdrawal seizures but has had the shakes before when unable to have EtOH. ER Course: Banana bag Allergies Allergy/AdvReac Type Severity Reaction Status Date / Time tomato Allergy Intermediate RASH Verified 11/19/17 00:18 No Known Drug Allergies Allergy Unknown . Verified 11/19/17 00:18 Home Medications Home Medications Medication Instructions Recorded Confirmed Type albuterol sulfate 2 puff INHALATION Q6H PRN 11/19/17 02/27/18 History lisinopril 20 mg PO DAILY 11/21/17 02/27/18 History loratadine 10 mg PO DAILY 11/21/17 02/27/18 History sertraline 50 mg PO DAILY 30 Days #30 tab 11/25/17 02/27/18 Rx bupropion HCl 100 mg PO BID 02/27/18 02/27/18 History Past Med/Surg History Medical History Suicidal overdose (Acute) Alcohol abuse (Acute) Seizures Hypertension Pharyngitis (Acute) Depression Surgical History Hernia (Chronic) 2016 repair H/O arthroscopic knee surgery Family History Other Family history non-contributory Social History Current Living Situation: Significant Other Feels Safe at Home: Yes Smoking Status: Current every day smoker Tobacco Type: cigarettes Hx Alcohol Use: Yes Alcohol type: beer Alcohol Intake Frequency: 0-2 drinks per day Hx Substance Use: No Beliefs That Will Affect Care: None Preferred Language: Tajik Review of Systems All systems reviewed & are unremarkable except as noted in HPI & below Physical Exam 2 Vital Signs (Past 24 Hours): Last Vital Signs Temp 36.8 C 02/27/18 18:14 Pulse 93 H 02/27/18 20:52 Resp 18 02/27/18 20:52 BP 125/85 02/27/18 20:52 Pulse Ox 99 02/27/18 20:52 Physical Exam: General: patient resting comfortably, NAD, ill-kempt, smells of EtOH, poor historian Skin: warm, dry, intact, scattered rashes on forearms, no bleeding or evidence of secondary infection HEENT: NC/AT, PERRL, EOMI, anicteric sclera, conjunctiva without injection, external ear normal to inspection and nontender, nares patent, dry mucus membranes, dentition intact, no oropharyngeal lesions, neck supple, trachea midline, no LAD, no thyromegaly, no JVD Heart: +S1/S2, regular, tachycardic, no m/r/g Lungs: equal air entry bilaterally, no rales/rhonchi/wheezes Abd: +BS, soft, NT/ND, no masses/organomegaly/ascites Ext: warm, 2+ pulses in UE/LE bilaterally, no clubbing/cyanosis or edema Neuro: nonfocal, speech intact, no facial droop, moving all extremities on command with equal strength 5/5 Results & Data Laboratory Results Lab Results 02/27/18 02/27/18 02/27/18 Range/Units 18:15 18:15 18:37 WBC 7.83 (4.8-10.8) K/uL RBC 3.98 L (4.7-6.1) M/uL Hgb 13.1 L (14.0-18.0) g/dL Hct 38.3 L (42-52) % MCV 96.2 (80-100) fL MCH 32.9 (25-34) pg MCHC 34.2 (32-36) g/dL RDW Std Deviation 47.8 H (36.4-46.3) fL RDW Coeff of Donny 13.4 (11.5-14.5) % Plt Count 281 (130-400) K/uL MPV 9.2 (7.4-10.4) fL Immature Gran % (Auto) 0.3 % Neut % (Auto) 56.2 % Lymph % (Auto) 34.4 % [place] % (Auto) 6.9 % Eos % (Auto) 1.9 % Baso % (Auto) 0.3 % Immature Gran # (Auto) 0.02 (0.00-0.02) K/uL Neut # (Auto) 4.41 (1.4-6.5) K/uL Lymph # (Auto) 2.69 (1.2-3.4) K/uL [place] # (Auto) 0.54 (0.11-0.59) K/uL Eos # (Auto) 0.15 (0-0.5) K/uL Baso # (Auto) 0.02 (0-0.2) K/uL RBC Morphology Unremarkable VBG pH (7.36-7.41) VBG pCO2 (38-50) mmHg VBG pO2 mmHg VBG HCO3 mmol/L VBG O2 Saturation % VBG Base Excess mEq/L Barometric Pressure mm/Hg Sodium (136-145) mmol/L Potassium (3.5-5.1) mmol/L Chloride (98-107) mmol/L Carbon Dioxide (21-32) mmol/L Anion Gap (3-11) BUN (7-18) mg/dl Creatinine (0.6-1.4) mg/dl Est Cr Clr Drug Dosing ml/min Est GFR ( Amer) Est GFR (Non-Af Amer) BUN/Creatinine Ratio (10-20) Glucose (70-99) mg/dl Calcium (8.5-10.1) mg/dl Total Bilirubin (0.2-1) mg/dl AST (15-37) U/L ALT (12-78) U/L Alkaline Phosphatase (45-117) U/L Total Creatine Kinase (39-308) U/L Total Protein (6.4-8.2) gm/dl Albumin (3.4-5.0) gm/dl Globulin (2.5-4.0) gm/dl Albumin/Globulin Ratio (0.9-2) Urine Color Yellow Urine Appearance Clear (Clear) Urine pH 5.0 (4.5-7.5) Ur Specific [place] 1.005 (1.000-1.030) Urine Protein Negative (Negative) Urine Glucose (UA) Negative (Negative) Urine Ketones Negative (Negative) Urine Blood Negative (Negative) Urine Nitrite Negative (Negative) Urine Bilirubin Negative (Negative) Urine Urobilinogen Negative (Negative) Ur Leukocyte Esterase Negative (Negative) Salicylates (2.8-20) mg/dl Urine Opiates Screen Neg (Neg) Ur Methadone, Qual Neg (Neg) Acetaminophen (10-30) ug/ml Urine Barbiturates Neg (Neg) Ur Phencyclidine (PCP) Neg (Neg) U Amphetamin/Meth Scrn Neg (Neg) MDMA (Ecstasy) Screen Pos H (Neg) U Benzodiazepines Scrn Pos H (Neg) Ur Cocaine Metabolite Neg (Neg) U Marijuana (THC) Screen Neg (Neg) Ethyl Alcohol mg/dL (0-3) mg/dl 02/27/18 02/27/18 02/27/18 Range/Units 18:37 18:37 18:37 WBC (4.8-10.8) K/uL RBC (4.7-6.1) M/uL Hgb (14.0-18.0) g/dL Hct (42-52) % MCV (80-100) fL MCH (25-34) pg MCHC (32-36) g/dL RDW Std Deviation (36.4-46.3) fL RDW Coeff of Donny (11.5-14.5) % Plt Count (130-400) K/uL MPV (7.4-10.4) fL Immature Gran % (Auto) % Neut % (Auto) % Lymph % (Auto) % [place] % (Auto) % Eos % (Auto) % Baso % (Auto) % Immature Gran # (Auto) (0.00-0.02) K/uL Neut # (Auto) (1.4-6.5) K/uL Lymph # (Auto) (1.2-3.4) K/uL [place] # (Auto) (0.11-0.59) K/uL Eos # (Auto) (0-0.5) K/uL Baso # (Auto) (0-0.2) K/uL RBC Morphology VBG pH (7.36-7.41) VBG pCO2 (38-50) mmHg VBG pO2 mmHg VBG HCO3 mmol/L VBG O2 Saturation % VBG Base Excess mEq/L Barometric Pressure mm/Hg Sodium 136 (136-145) mmol/L Potassium 3.7 (3.5-5.1) mmol/L Chloride 110 H (98-107) mmol/L Carbon Dioxide 18 L (21-32) mmol/L Anion Gap 8.0 (3-11) BUN 7 (7-18) mg/dl Creatinine 0.89 (0.6-1.4) mg/dl Est Cr Clr Drug Dosing 112.8 ml/min Est GFR ( Amer) 120.5 Est GFR (Non-Af Amer) 104.0 BUN/Creatinine Ratio 7.6 L (10-20) Glucose 73 (70-99) mg/dl Calcium 7.9 L (8.5-10.1) mg/dl Total Bilirubin 0.1 L (0.2-1) mg/dl AST 33 (15-37) U/L ALT 41 (12-78) U/L Alkaline Phosphatase 110 (45-117) U/L Total Creatine Kinase 187 (39-308) U/L Total Protein 7.1 (6.4-8.2) gm/dl Albumin 3.3 L (3.4-5.0) gm/dl Globulin 3.8 (2.5-4.0) gm/dl Albumin/Globulin Ratio 0.9 (0.9-2) Urine Color Urine Appearance (Clear) Urine pH (4.5-7.5) Ur Specific [place] (1.000-1.030) Urine Protein (Negative) Urine Glucose (UA) (Negative) Urine Ketones (Negative) Urine Blood (Negative) Urine Nitrite (Negative) Urine Bilirubin (Negative) Urine Urobilinogen (Negative) Ur Leukocyte Esterase (Negative) Salicylates 4.4 (2.8-20) mg/dl Urine Opiates Screen (Neg) Ur Methadone, Qual (Neg) Acetaminophen < 2 L (10-30) ug/ml Urine Barbiturates (Neg) Ur Phencyclidine (PCP) (Neg) U Amphetamin/Meth Scrn (Neg) MDMA (Ecstasy) Screen (Neg) U Benzodiazepines Scrn (Neg) Ur Cocaine Metabolite (Neg) U Marijuana (THC) Screen (Neg) Ethyl Alcohol mg/dL 193.0 H (0-3) mg/dl 02/27/18 Range/Units 20:28 WBC (4.8-10.8) K/uL RBC (4.7-6.1) M/uL Hgb (14.0-18.0) g/dL Hct (42-52) % MCV (80-100) fL MCH (25-34) pg MCHC (32-36) g/dL RDW Std Deviation (36.4-46.3) fL RDW Coeff of Donny (11.5-14.5) % Plt Count (130-400) K/uL MPV (7.4-10.4) fL Immature Gran % (Auto) % Neut % (Auto) % Lymph % (Auto) % [place] % (Auto) % Eos % (Auto) % Baso % (Auto) % Immature Gran # (Auto) (0.00-0.02) K/uL Neut # (Auto) (1.4-6.5) K/uL Lymph # (Auto) (1.2-3.4) K/uL [place] # (Auto) (0.11-0.59) K/uL Eos # (Auto) (0-0.5) K/uL Baso # (Auto) (0-0.2) K/uL RBC Morphology VBG pH 7.34 L (7.36-7.41) VBG pCO2 37 L (38-50) mmHg VBG pO2 64 mmHg VBG HCO3 19 mmol/L VBG O2 Saturation 89.9 % VBG Base Excess -5.9 mEq/L Barometric Pressure 736.6 mm/Hg Sodium (136-145) mmol/L Potassium (3.5-5.1) mmol/L Chloride (98-107) mmol/L Carbon Dioxide (21-32) mmol/L Anion Gap (3-11) BUN (7-18) mg/dl Creatinine (0.6-1.4) mg/dl Est Cr Clr Drug Dosing ml/min Est GFR ( Amer) Est GFR (Non-Af Amer) BUN/Creatinine Ratio (10-20) Glucose (70-99) mg/dl Calcium (8.5-10.1) mg/dl Total Bilirubin (0.2-1) mg/dl AST (15-37) U/L ALT (12-78) U/L Alkaline Phosphatase (45-117) U/L Total Creatine Kinase (39-308) U/L Total Protein (6.4-8.2) gm/dl Albumin (3.4-5.0) gm/dl Globulin (2.5-4.0) gm/dl Albumin/Globulin Ratio (0.9-2) Urine Color Urine Appearance (Clear) Urine pH (4.5-7.5) Ur Specific [place] (1.000-1.030) Urine Protein (Negative) Urine Glucose (UA) (Negative) Urine Ketones (Negative) Urine Blood (Negative) Urine Nitrite (Negative) Urine Bilirubin (Negative) Urine Urobilinogen (Negative) Ur Leukocyte Esterase (Negative) Salicylates (2.8-20) mg/dl Urine Opiates Screen (Neg) Ur Methadone, Qual (Neg) Acetaminophen (10-30) ug/ml Urine Barbiturates (Neg) Ur Phencyclidine (PCP) (Neg) U Amphetamin/Meth Scrn (Neg) MDMA (Ecstasy) Screen (Neg) U Benzodiazepines Scrn (Neg) Ur Cocaine Metabolite (Neg) U Marijuana (THC) Screen (Neg) Ethyl Alcohol mg/dL (0-3) mg/dl ECG Additional Comments: Sinus tachycardia at 107bpm, normal axis, ZW=488, QRS=82, WZq=208, nonspecific TW flattening in inferior/lateral leads Code Status & VTE Plan Code Status FULL VTE Prophylaxis Plan VTE Prophylaxis will be ordered: Yes Critical Care Time Critical Care Time: No _ (1) Suicidal overdose Encounter type: initial encounter Qualified Code(s): T50.902A - Poisoning by unspecified drugs, medicaments and biological substances, intentional self-harm , initial encounter (2) Hypertension Hypertension type: essential hypertension Qualified Code(s): I10 - Essential (primary) hypertension (3) Depression Depression Type: major depressive disorder Major depression recurrence: unspecified whether recurrent Active/Remission status: remission status unspecified Qualified Code(s): F32.9 - Major depressive disorder, single episode, unspecified
[2018-02-27] MEDS ORDERED: THIAMINE HCL 100 MG TAB PO STA (22:11)
[2018-02-27] MEDS ORDERED: LORazepam 1 MG/2 ML VIAL IV PRN (22:11)
[2018-02-27] MEDS ORDERED: ALBUTEROL HFA 8 GM INHALER INH PRN (22:11)
[2018-02-27] MEDS ORDERED: LACTATED RINGER'S 1,000 ML IV SCH (22:30)
[2018-02-27 22:42] LABS: Magnesium 2.3 mg/dl (1.8-2.4); Phosphorus 2.9 mg/dl (2.5-4.9)
[2018-02-27 23:05] LABS: INR 1.1 (0.9-1.1); Prothrombin Time 10.8 Seconds (9.0-12.0)
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
[2018-02-28 06:01] LABS: Basophils # (auto) 0.03 K/uL (0-0.2); Basophils % (auto) 0.4 %; Eosinophils # (auto) 0.25 K/uL (0-0.5); Hematocrit (blood only) 39.5 % (42-52); Hemoglobin 13.2 g/dL (14.0-18.0); Immature Granulocytes # (auto) 0.03 K/uL (0.00-0.02); Immature Granulocytes % (auto) 0.4 %; Lymphocytes # (auto) 2.67 K/uL (1.2-3.4); Lymphocytes % (auto) 31.6 %; Mean Corpuscular Hgb Conc 33.4 g/dL (32-36); Mean Corpuscular Volume 97.5 fL (80-100); Mean Platelet Volume 9.4 fL (7.4-10.4); Monocytes % (auto) 9.5 %; Neutrophils # (auto) 4.66 K/uL (1.4-6.5); Neutrophils % (auto) 55.1 %; Platelet Count 300 K/uL (130-400); RDW Coefficient of Variation 13.7 % (11.5-14.5); RDW Standard Deviation 49.2 fL (36.4-46.3); Red Blood Count 4.05 M/uL (4.7-6.1); White Blood Count 8.44 K/uL (4.8-10.8)
[2018-02-28 06:36] LABS: Creatinine Clr Calc Pharmacy 104.6 ml/min; Est GFR (Non-African American) 95.7
[2018-02-28] MEDS ORDERED: ENOXAPARIN INJ 40 MG/0.4 ML SYR SQ SCH (08:00)
[2018-02-28] MEDS ORDERED: LISINOPRIL 20 MG TAB PO SCH (09:00)
[2018-02-28] MEDS ORDERED: NICOTINE 21 MG/24 HR TDSY TD SCH (09:00)
[2018-02-28] MEDS ORDERED: INFLUENZA VIRUS QUAD VACCINE 0.5 ML SYR IM ONE (12:00)
[2018-02-28] MEDS ORDERED: INFLUENZA ADMINISTRATION CHARGE ONE (12:00)
--- NOTE | 2018-02-28 15:07 | Psychiatric Consultation ---
Date of Consultation February 28, 2018 Impression / Recommendations Impression 42yo CM with h/o depression, seizure d/o and HTN who was admitted after taking and OD of 3 - 4 Bupropion, 3 - 4 Claritin and 3 - 4 Paxil and reportedly drank 7 -8 beers. Patient was admitted for possible seizure activity and medical instability s/p OD. Psychiatry was consulted for evaluation and med recommendations. Patient seems to be admitting that he intentionally attempted to end his life by OD on pills and wishes he was successful. He has been depressed, off meds, and court appearance looming were stressors were what pushed him to suicidality. Discussed need for further Psychiatry care when medically stable and patient agrees to this. At this time would recommend restarting Zoloft 50mg daily and hold wellbutrin. Recommendations: - Start zoloft 50mg daily - Patient s/p suicide attempt and would need Psychiatric inpatient care when medically stabilized, patient agrees to this. - Hold wellbutrin given OD and h/o seizures Inventory Assets Strengths: help seeking, access to care Needs: meds, therapy, outpatient follow up Risk Factors Assessment Male: Yes : Yes Health Problems: Yes Mental Health Diagnoses: Yes Previous Attempt: Yes Previous Psychiatric Hospitalization: Yes Protective Factors Assessment Anabaptist Beliefs: No : No Responsible for Young Children: Yes Employed: No Psych History Chief Complaint "I was just done with it" History of Present Illness 42yo CM with h/o depression, seizure d/o and HTN who was admitted after taking and OD of 3 - 4 Bupropion, 3 - 4 Claritin and 3 - 4 Paxil and reportedly drank 7 -8 beers. Patient was admitted for possible seizure activity and medical instability s/p OD. Psychiatry was consulted for evaluation and med recommendations. Patient reports that he "had enough of everything" and wanted to . States he took the pills to kill himself because he has a warrant for overdue child support, relational problems with girlfriend and was supposed to be in court today for harrassment charges his sister filed against him. He states he wishes that he had been successful. Reports depressed mood and also stopped taking medications 1-2 weeks ago (he ran out of them). He denies Si/HI/ aVH however reports he wishes he had killed himself. Below auto-populated form chart: He was admitted in November 2017 with similar presentation, intentional OD of pills and EtOH. He was evaluated by Psychiatry at that time. Discharged home with plans to obtain outpatient treatment for EtOH abuse at [facility]. Patient states that he did not go to [facility]. He does not identify himself as an alcoholic. He states that he drinks frequently but not daily. No history of withdrawal seizures but has had the shakes before when unable to have EtOH. ER Course: Banana bag Past Psychiatric History Previous Psych History: depression Previous Psych Admissions: yes History of Previous Suicide Attempt: Yes Allergies Allergy/AdvReac Type Severity Reaction Status Date / Time tomato Allergy Intermediate RASH Verified 11/19/17 00:18 No Known Drug Allergies Allergy Unknown . Verified 11/19/17 00:18 Home Medications Home Medications Medication Instructions Recorded Confirmed Type albuterol sulfate 2 puff INHALATION Q6H PRN 11/19/17 02/27/18 History lisinopril 20 mg PO DAILY 11/21/17 02/27/18 History loratadine 10 mg PO DAILY 11/21/17 02/27/18 History sertraline 50 mg PO DAILY 30 Days #30 tab 11/25/17 02/27/18 Rx bupropion HCl 100 mg PO BID 02/27/18 02/27/18 History Personal History Beliefs That Will Affect Care: None Patient History Medical History Suicidal overdose (Acute) Alcohol abuse (Acute) Seizures Hypertension Pharyngitis (Acute) Depression Surgical History Hernia (Chronic) 2016 repair H/O arthroscopic knee surgery Family History Other Family history non-contributory Social History Current Living Situation: Significant Other Other Information That Helps Us Care for You: No Feels Safe at Home: Yes Safety Concerns: Feels Safe At This Time Smoking Status: Current every day smoker Cigarettes per Day: 1/2 pack Do You Dip or Chew Tobacco: No Second Hand Exposure: Yes Hx Alcohol Use: Yes Alcohol type: beer Alcohol Intake Frequency: 3 or more drinks per day Hx Substance Use: No Beliefs That Will Affect Care: None Preferred Language: Latvian Communication Ability: Effective Hand Router Operator Required: No Physical Exam Psychiatric Orientation: alert and oriented x 3 Apperance: appropriately dressed Eye Contact: + fair eye contact Motor Behavior: no abnormal motor movements Speech: normal rate/rhythm/volume of speech Affect: + depressed affect and mood congruent with affect Thought Process: linear/logical thought process Thought Content: not paranoid and no delusions Suicidal Thoughts: denies suicidal thoughts wishes he had been successful to killing himself Homicidal Thoughts: denies homicidal thoughts Hallucinations: no auditory hallucinations and no visual hallucinations Cognition: recent memory grossly intact and remote memory grossly intact Estimated Intelligence: average estimated intelligence Insight: + fair insight Judgement: + fair judgement Vital Signs (Past 24 Hours) Last Vital Signs Temp 36.8 C 02/28/18 11:32 Pulse 90 02/28/18 11:32 Resp 17 02/28/18 11:32 BP 152/94 H 02/28/18 11:32 Pulse Ox 97 02/28/18 11:32 Results & Data Medications Administered Enoxaparin Sodium (Lovenox) 40 mg SQ Q24H [facility] Stop: 03/30/18 07:59 Last Admin: 02/28/18 08:46 Dose: 40 mg Lisinopril (Zestril) 20 mg PO DAILY [facility] Stop: 03/30/18 08:59 Last Admin: 02/28/18 08:47 Dose: 20 mg Nicotine (Nicoderm Cq) 21 mg TD QAM [facility] Stop: 03/30/18 08:59 Last Admin: 02/28/18 08:47 Dose: 21 mg
--- NOTE | 2018-02-28 18:05 | Communication Note ---
Date of Service: February 28, 2018 Patient is medically cleared for transfer to behavior health unit.
[2018-03-03 11:12] LABS: 7-Aminoclonaz, Confirm NEGATIVE NG/ML (CUTOFF=25); Hydro-Alp Ur, GC/MS NEGATIVE NG/ML (CUTOFF=25); Hydroxyethylflurazepam, Conf NEGATIVE NG/ML (CUTOFF=50); Hydroxytriazolam NEGATIVE NG/ML (CUTOFF=50); Lorazepam, Ur GC/MS NEGATIVE NG/ML (CUTOFF=50); MDA negative; MDEA negative; MDMA (Ecstasy) Urine, Confirm negative; Nordiazepam, Confirm NEGATIVE NG/ML (CUTOFF=50); Oxazepam Ur, GC/MS NEGATIVE NG/ML (CUTOFF=50); Temazepam, Confirm NEGATIVE NG/ML (CUTOFF=50)
--- NOTE | 2018-03-06 11:24 | Discharge Summary ---
Date of Service February 28, 2018 Admission HPI Per Admitting Provider 42yo CM with h/o depression, seizure d/o and HTN who was admitted after taking and OD of 3 - 4 Bupropion, 3 - 4 Claritin and 3 - 4 Paxil and reportedly drank 7 -8 beers. Patient was admitted for possible seizure activity and medical instability s/p OD. Psychiatry was consulted for evaluation and med recommendations. Patient reports that he "had enough of everything" and wanted to . States he took the pills to kill himself because he has a warrant for overdue child support, relational problems with girlfriend and was supposed to be in court today for harrassment charges his sister filed against him. He states he wishes that he had been successful. Reports depressed mood and also stopped taking medications 1-2 weeks ago (he ran out of them). He denies Si/HI/ aVH however reports he wishes he had killed himself. Below auto-populated form chart: He was admitted in November 2017 with similar presentation, intentional OD of pills and EtOH. He was evaluated by Psychiatry at that time. Discharged home with plans to obtain outpatient treatment for EtOH abuse at [facility]. Patient states that he did not go to [facility]. He does not identify himself as an alcoholic. He states that he drinks frequently but not daily. No history of withdrawal seizures but has had the shakes before when unable to have EtOH. ER Course: Banana bag Principal Diagnosis SUICIDAL OVERDOSE Discharge Exam General: patient resting comfortably, NAD, ill-kempt, Skin: warm, dry, intact, scattered rashes on forearms, no bleeding or evidence of secondary infection HEENT: NC/AT, PERRL, EOMI, anicteric sclera, conjunctiva without injection, external ear normal to inspection and nontender, nares patent, dry mucus membranes, dentition intact, no oropharyngeal lesions, neck supple, trachea midline, no LAD, no thyromegaly, no JVD Heart: +S1/S2, regular, tachycardic, no m/r/g Lungs: equal air entry bilaterally, no rales/rhonchi/wheezes Abd: +BS, soft, NT/ND, no masses/organomegaly/ascites Ext: warm, 2+ pulses in UE/LE bilaterally, no clubbing/cyanosis or edema Neuro: nonfocal, speech intact, no facial droop, moving all extremities on command with equal strength 5/5 Discharge Data Allergies Allergy/AdvReac Type Severity Reaction Status Date / Time tomato Allergy Intermediate RASH Verified 11/19/17 00:18 No Known Drug Allergies Allergy Unknown . Verified 11/19/17 00:18 Consultations 02/27/18 20:13 ED Decision to Admit Stat 02/27/18 22:11 Consult Psychiatry Routine Hospital Course (1) Suicidal overdose: Patient with intentional overdose, suicide attempt. History of depression , prior suicide attempt in the past, increased stressors to include court hearing and arrest warrent as well as family and work stress. Patient presently not suicidal. States he will not attempt to harm himself while in the hospital. Per records he took Buspar, Claritin and Paxil (patient is not on Paxil or Buspar) and drank Etoh (level 193). He is awake and alert and responsive, mildly somnolent. Hemodynamically stable. EKG with sinus tachycardia with mild increase in QT interval to 475. * Admit to medical floor with telemetry monitoring * Seizure precautions * Aspiration precautions * 1:1 sitter * Will hold Sertraline, Loratadine and Bupropion for now due to overdose * Repeat EKG in AM to assess QT interval * Psychiatry consultation - appreciate assistance with this case On day of discharge, patient was asymptomatic. Not having signs of alcohol withdrawal. Cleared patient for transfer (2) Seizures: Patient denies seizure tonight. States that he was shaking a little but not a true seizure * Seizure precautions * Monitor * AWSS - Ativan PRN * Patient most likely should not be on Bupropion given history of seizures, Psychiatry please comment * (3) Hypertension: Blood pressure stable at present 125/74. * Continue Lisinopril daily * (4) Alcohol abuse: Patient with history of heavy drinking. Was recommended to seek outpatient treatment at [facility], however, patient did not follow through. Does not consider himself an alcoholic * AWSS - Ativan PRN * Banana bag given in ER - continue IVF LR at 100mL/hr x 1 liter * Thiamine 100mg po daily * Seizure precautions * (5) Depression: Patient on Sertraline. He reports compliance with his medications. Does not follow routinely with a PCP or Psychiatry * Hold Sertraline in setting of OD * Monitor * Psychiatry consultation - appreciate assistance * F/E/N - LR at 100mL/hr x 1 liter, monitor electrolytes and replete as needed. Check Mg and PO4 x 1. Regular diet as tolerated with aspiration precautions. Nicotine patch 21mcg daily. Thiamine supplement as above Ppx - Lovenox for DVT prophylaxis discharge to Psychiatry. Total Time Total Time Spent Total Time Spent (In Minutes): 33 minutes Total Time Includes: Examination of the Patient, Discharge Planning, Medication Reconciliation and Communication With Other Providers Discharge Plan Discharge Items Patient Disposition: Transfer Behavioral Health Fac Reason For Visit: INTENTIONAL OVERDOSE Discharge Diagnosis: Intentional Overdose Discharge Goals: Decrease discomfort Activity: Resume your previous activity Non-emergency contact: Primary Care Provider Call non-emergency contact if: you have any medication questions Diet: Regular Addtl Provider Instructions: DIscharged to mental health. Prescriptions: Discontinued loratadine 10 mg Tablet 10 mg PO DAILY RF: 0 bupropion HCl 100 mg tablet sustained-release 12 hr 100 mg PO BID RF: 0 No Action sertraline 100 mg Tablet 100 mg PO QAM 30 Days Qty: 30 RF: 0 gabapentin 300 mg Capsule 300 mg PO TID 30 Days Qty: 90 RF: 0 albuterol sulfate 90 mcg/actuation Hfa Aerosol Inhaler 2 puff INHALATION Q6H PRN (Reason: Shortness Of Breath Or Wheezing) Qty: 6.7 RF: 0 loratadine 10 mg Tablet 10 mg PO DAILY 30 Days Qty: 30 RF: 0 Stand-Alone Forms: [facility] Discharge Orders: Discharge Order (Routine); Ordered 02/28/18 Ordered By: Femi Coburn Admission Data Admit Date/Time: 02/27/18 21:15 Attending Provider: Femi Coburn Admit Provider: Ariana Waite Primary Care Provider: PCP,NO Other Providers: Eugenio Bryan Service: Telemetry Other Interventions: Discharge Summary Assessment (RN) Last Done: 02/28/18 21:02 DC Date/Time DO NOT enter until pt leaves facility: 02/28/18 21:14
== END 2018-02-28 21:14 | DRG 918 ==
LOC: ED 18:14 → SUATTDRO 21:15 → 2N 21:15
DX: I10 Essential (primary) hypertension; Z79.899 Other long term (current) drug therapy; T43.222A Poisoning by selective serotonin reuptake inhibitors, intentional self-harm, initial encounter; Y90.6 Blood alcohol level of 120-199 mg/100 ml; G40.909 Epilepsy, unspecified, not intractable, without status epilepticus; Z65.3 Problems related to other legal circumstances; F32.9 Major depressive disorder, single episode, unspecified; T43.592A Poisoning by other antipsychotics and neuroleptics, intentional self-harm, initial encounter; T45.0X2A Poisoning by antiallergic and antiemetic drugs, intentional self-harm, initial encounter; F10.129 Alcohol abuse with intoxication, unspecified; F17.210 Nicotine dependence, cigarettes, uncomplicated; Z63.8 Other specified problems related to primary support group; Z91.5 Personal history of self-harm

== ENCOUNTER 2018-02-28 20:12 | Inpatient (IN) | END 2018-03-04 10:30 | disposition home or self-care (01) | LOC: 3S 21:25 ==